=== PATIENT | male | born 1960 | race Caucasian/White ===

== ENCOUNTER 2016-12-29 03:26 | Emergency (ER) | payer BC ==
[2016-12-29] MEDS ORDERED: OXYMETAZOLINE 0.05% NASAL 15 SPRAYS/15 ML BTL NASAL ONE (03:46)
[2016-12-29] MEDS ORDERED: SILVER NITRATE 1 APP APP TOPICAL ONE (04:19)
[2016-12-29] MEDS ORDERED: GELATIN SPONGE,ABSORBABLE 12-7 1 SPONGE SPONGE TOPICAL ONE (04:19)
[2016-12-29 04:45] LABS: HEMATOCRIT 49.2 % (42.0-54.0); MEAN CELL VOLUME 92.2 fL (80.0-100.0); MEAN CORPUS. HGB CONCENTRATION 34.5 g/dL (32.0-36.0); MEAN CORPUSCULAR HEMOGLOBIN 31.8 pg (29.0-35.0); MEAN PLATELET VOLUME 9.3 fL (7.4-10.4); RED BLOOD COUNT 5.33 X 10^6uL (4.20-6.10); RED CELL DISTRIBUTION WIDTH 12.1 % (11.5-14.5); WHITE BLOOD COUNT 9.2 X 10^3uL (3.9-10.7)
[2016-12-29] MEDS ORDERED: ONDANSETRON HCL 4 MG/2 ML VIAL ONE (04:57)
--- NOTE | 2016-12-29 05:23 | ER NURSING DOCUMENTATION ---
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 PT rh denies blood thinners and is bleeding from both nares. Transition of care: Home. 03:30 Method Of Arrival: Private Vehicle rh 03:30 Acuity: WALE 3 rh Triage Assessment: 03:31 General: Appears in no apparent distress, Behavior is cooperative. Pain: Denies pain. rh EENT: Nares with bleeding noted bilaterally. GI: Denies nausea. Historical: - Allergies: No known drug Allergies; - Home Meds: 1. None - PMHx: None; - PSHx: None; - Tetanus: < 10 years. - Ebola Screening: : Patient negative for fever greater than or equal to 101.5 degrees Fahrenheit, and additional compatible Ebola Virus Disease symptoms. - Immunization history: Flu Vaccine None. - Social history: Smoking status: Patient uses tobacco products, current every day smoker. Screenin:32 Infectious Disease Risk None. Abuse screen: Denies threats or abuse. Denies injuries rh from another. Abuse screen: Denies threats or abuse. Nutritional screening: No deficits noted. Assessment: 03:32 See Triage Assessment done by same RN. rh 04:10 Reassessment: Dr Dc placed bilateral rhino rockets, pt is having continuous bleeding rh from his mouth and is spitting our large blood clots. 04:39 Reassessment: Bleeding from mouth and nares has subsided . rh 04:53 Reassessment: Pt coughed and the bleeding has restarted both from his nares and his rh mouth. Bleeding is mild-moderate. Pt denies nausea and dizziness. . Vital Signs: 03:31 BP 139 / 89; Pulse 89; Resp 17; Temp 98.6(TE); Pulse Ox 94% on R/A; Weight 99.79 kg; rh Height 6 ft. 1 in. (185.42 cm); Pain 0/10; 04:48 BP 110 / 74; Pulse 78; Resp 16; Pulse Ox 92% on R/A; Pain 0/10; rh 03:31 Body Mass Index 29.03 (99.79 kg, 185.42 cm) rh ED Course: 03:27 Patient arrived in ED. em2 03:27 Pradip Leon is Private Physician. em2 03:30 Dalila Diaz is Primary Nurse. rh 03:30 Triage completed. rh 03:30 Nosebleed Care Nasal Clamp Applied. rh 03:32 Notified ED Physician of patient's arrival and chief complaint. Dr. Dc notified. rh 03:32 Valuables Remains with patient Patient has correct armband on for positive rh identification. Bed in low position. Call light in reach. Side rails up X 1. Family accompanied patient. 03:35 Efrain Dc MD is Attending Physician. 04:00 Assist Provider Assist provider with nosebleed control using Afrin sprays, simple rh cauterization, nasal clamp, rhino rocket placed for extensive packing needs, Bleeding from both nares. Set up for procedure. Performed by Efrain Dc MD Bleeding continues Patient tolerated well. 04:35 Inserted peripheral IV: 20 gauge in left antecubital area and blood collected. rh Administered Medications: 03:37 Drug: Afrin Drops (0.05 %) 1 sprays; Route: Intranasal; Site: both nares; rh 04:37 Drug: NS 0.9% 1000 ml; Route: IV; Rate: bolus; Site: left antecubital; rh 04:49 Follow up: IV Status: Infusing continued upon transfer 04:49 Drug: Zofran 4 mg; Route: IVP; Infused Over: 2 mins; Site: left antecubital; rh 04:49 Follow up: Response: No adverse reaction rh Outcome: 04:35 ER care complete, transfer ordered by . 04:49 Transferred: Patient will be transferred to: [facility]. Facility rh Acceptance Time: December 29, 2016 at 04:35 Patient's face sheet was faxed to accepting facility. Face Sheet included patient's name, address, age, gender, contact information and insurance information. Patient will be transported by: [facility] ground. Report called to: Cayden Victor RN at [facility] ED Nurse and Physician Charting and Notes were sent to Accepting Facility. All tests and/or procedures with results, if applicable, were sent to accepting facility. 04:49 Condition: stable 04:49 Instructed on need for transfer 05:22 Patient left the ED. Signatures: Efrain Dc MD MD jm Meinking-reg, Ellen-reg 2 Dalila Diaz
--- NOTE | 2016-12-29 05:23 | ER PHYSICIAN DOCUMENTATION ---
Physician Documentation [facility] Name:Serge Joe Age:56 yrs Sex:Male :1960 Arrival Date:12/29/2016 Time:03:26 Bed2 Private MD:Pradip Leon ED, John Disposition: 12/29/16 04:35 Transfer ordered to [facility]. Diagnosis is Epistaxis - Nose Bleed. - Reason for transfer: Specialty. - Accepting physician is Dr. Gaytan. - Condition is Fair. - Problem is new. - Symptoms have improved. COBRA Form completed? Yes Transfer - Mode of Transportation Ambulance HPI: 12/29 04:30 This 56 yrs old Male presents to ER via Private Vehicle with complaints of jm Nose Bleed. 04:30 The patient presents with a nose bleed. Onset: The symptom(s)/episode began/occurred jm just prior to arrival. Modifying factors: the symptoms are aggravated by nothing. Associated signs and symptoms: Loss of consciousness: the patient experienced no loss of consciousness, Pertinent negatives: lightheadedness. Severity of symptoms: in the emergency department the symptoms are unchanged. The patient has not experienced similar symptoms in the past. The patient has not recently seen a physician. Pt w spontaneous nosebleed. . Historical: - Allergies: No known drug Allergies; - Home Meds: 1. None - PMHx: None; - PSHx: None; - Tetanus: < 10 years. - Ebola Screening: : Patient negative for fever greater than or equal to 101.5 degrees Fahrenheit, and additional compatible Ebola Virus Disease symptoms. - Immunization history: Flu Vaccine None. - Social history: Smoking status: Patient uses tobacco products, current every day smoker. ROS: 04:30 Constitutional: Negative for fatigue, fever. jm 04:30 ENT: Positive for nose bleed. 04:30 Respiratory: Negative for cough, shortness of breath. 04:30 Abdomen/GI: Negative for nausea, vomiting. 04:30 Neuro: Negative for dizziness. 04:30 All other systems are negative. Exam: 04:31 Constitutional: The patient appears alert, awake. 04:31 Eyes: Pupils: equal, round, and reactive to light and accomodation, Extraocular movements: intact throughout. 04:31 ENT: Nose: bleeding, is seen from the left nare, and is moderate, nasal drainage, that is moderate, and expressed from the left nare, and is seen coming from both nares, Posterior pharynx: is normal, bleeding noted down back of throat. . 04:31 Cardiovascular: Rate: normal, Rhythm: regular. 04:31 Respiratory: Respirations: normal, Breath sounds: are normal. 04:31 Back: CVA tenderness, is absent. 04:31 Musculoskeletal/extremity: Pulses: are normal with no appreciated deficits, Weight bearing: able to fully bear weight. 04:31 Skin: Appearance: Color: pink, no rash present. 04:31 Neuro: Mentation: is normal, Gait: is steady. 04:31 Psych: Behavior/mood is pleasant, Affect is calm. Vital Signs: 03:31 BP 139 / 89; Pulse 89; Resp 17; Temp 98.6(TE); Pulse Ox 94% on R/A; Weight 99.79 kg; rh Height 6 ft. 1 in. (185.42 cm); Pain 0/10; 04:48 BP 110 / 74; Pulse 78; Resp 16; Pulse Ox 92% on R/A; Pain 0/10; rh 03:31 Body Mass Index 29.03 (99.79 kg, 185.42 cm) rh Procedures: 04:32 Epistaxis treatment: A moderate amount of bleeding noted from both nares. Treated using direct pressure, nasal clamp, anterior packing, nasal tampon, Bleeding still bleeding. . MDM: 03:36 Patient medically screened. 04:33 Differential diagnosis: spontaneous epistaxis. Data reviewed: vital signs, nurses notes, and as a result, I will discharge patient. Counseling: I had a detailed discussion with the patient and/or guardian regarding: the historical points, exam findings, and any diagnostic results supporting the discharge/admit diagnosis, lab results, the need to transfer to another facility, [facility] does not immediately have the required specialist. Response to treatment: the patient's symptoms have mildly improved after treatment, but still bleeding . Physician consultation: Lukas Colmenares was called at 04:33, was contacted at 04:33. ED course: Could only slow down bleed w nasal tampons. Pt will be seen at [facility] ER by their ED doctor with ENT backup. . 12/29 04:47 Order name: CBC WITHOUT A DIFFERENTIAL; Complete Time: 09:44 EDMS 12/29 04:36 Order name: Iv Saline Lock; Complete Time: 04:37 12/29 04:36 Order name: Pulse Ox Continuous; Complete Time: 04:37 Dispensed Medications: 03:37 Drug: Afrin Drops (0.05 %) 1 sprays; Route: Intranasal; Site: both nares; rh 04:37 Drug: NS 0.9% 1000 ml; Route: IV; Rate: bolus; Site: left antecubital; rh 04:49 Follow up: IV Status: Infusing continued upon transfer rh 04:49 Drug: Zofran 4 mg; Route: IVP; Infused Over: 2 mins; Site: left antecubital; rh 04:49 Follow up: Response: No adverse reaction rh Signatures: Efrain Dc MD MD jm Hofsess, Rachel
== END 2016-12-29 05:23 | disposition short-term general hospital (02) ==
LOC: ER 03:26
DX: R04.0 Epistaxis (principal); Z74.3 Need for continuous supervision
CPT/HCPCS: 30901; 30903; 85027; 96374; 99285; A0425; A0429; J2405